=== PATIENT | female | born 1950 | race Asian ===

== ENCOUNTER 2019-07-26 03:11 | Emergency (ER) | payer BC, MEDICAID ==
[~2019-07-26] VITALS: Ht 152.4 cm; Wt 45.4 kg
[2019-07-26 03:16] VITALS: Ht 152.4 cm; Wt 45.4 kg
[2019-07-26 04:04] LABS: CALCIUM 9.5 mg/dL (8.5-10.1); CARBON DIOXIDE 27.7 mmol/L (21-32); CHLORIDE SERUM 107 mmol/L (98-107); CREATININE SERUM 0.9 mg/dL (0.6-1.0); GFR1 > 60 mL/min; GLUCOSE SERUM 146 mg/dL (74-106); POTASSIUM SERUM 3.5 mmol/L (3.5-5.1); SODIUM SERUM 145 mmol/L (136-145)
[2019-07-26 04:10] LABS: ALBUMIN 3.8 g/dL (3.4-5.0); ALKALINE PHOSPHATASE 98 U/L (46-116); ALT/SGPT 28 U/L (14-59); AST/SGOT 16 U/L (15-37); BILIRUBIN TOTAL 0.6 mg/dL (0.20-1.00); TOTAL PROTEIN, SERUM 7.1 g/dL (6.4-8.2)
[2019-07-26 04:13] LABS: UA SPECIFIC GRAVITY 1.025 (1.005-1.035); microscopic required? YES; urine erythrocyte TRACE (NEGATIVE)
[2019-07-26 04:16] LABS: PLATELET COUNT 255 x10^3mcL (130-400)
[2019-07-26 04:20] LABS: BASOPHIL % 0 % (0-2)
[2019-07-26 06:28] VITALS: BP 116/61
== END 2019-07-26 06:28 | disposition home or self-care (01) ==
LOC: ED 03:11
PROVIDERS: Emergency Medicine
DX: N20.0 Calculus of kidney (principal); Z98.890 Other specified postprocedural states
CPT/HCPCS: J1885; J7030